=== PATIENT | female | born 1965 | race Caucasian/White ===

== ENCOUNTER 2017-10-18 08:28 | Emergency (ER) | payer OTHER, BC ==
[~2017-10-18] VITALS: Ht 165.1 cm; Wt 83.9 kg
[~2017-10-18 08:28] MED LIST: ALBU90OI INH; ALPR.5; BELPHEELB PO; BIRTH CONTROL; CETI10 PO; CIME300 PO; DULO60 PO; ESTR1 PO; ESTR2 PO; FEXO60; FEXPSEER; FURO20; LEVSOD75; MOMENI; MULVITMIND PO; OMEP20ER PO; OXYACE5T PO; POTASSIUM PO; POTCHL20ER PO; PRED20 PO; PROM25 PO; Prednisone20 MG PO; QUET100 PO; ROSU10TA; RXSULTRIDS PO; SERT100; SUCR1 PO; SULTRIDS PO
[2017-10-18 08:51] LABS: BASOPHILS ABSOLUTE AUTO 0.05 K/mm3 (0.00-0.23); BASOPHILS PERCENT AUTO 1 % (0-2); EOSINOPHILS ABSOLUTE AUTO 0.25 K/mm3 (0.00-0.68); EOSINOPHILS PERCENT AUTO 4 % (0-6); Hemoglobin 12.2 g/dL (11.5-16.0); IMMATURE GRAN ABSOLUTE AUTO 0.03 K/mm3 (0.00-0.10); IMMATURE GRAN PERCENT AUTO 0 % (0-1); LYMPHOCYTES ABSOLUTE AUTO 2.05 K/mm3 (0.84-5.20); LYMPHOCYTES PERCENT AUTO 29 % (21-46); MONOCYTES ABSOLUTE AUTO 0.42 K/mm3 (0.16-1.47); MONOCYTES PERCENT AUTO 6 % (4-13); Mean Corpuscular HGB 30.3 pg (26.0-34.0); Mean Corpuscular HGB Conc 33.9 g/dL (31.5-36.5); Mean Corpuscular Volume 90 fL (80-100); Mean Platelet Volume 10.1 fL (9.1-12.4); NEUTROPHILS ABSOLUTE AUTO 4.17 K/mm3 (1.96-9.15); NEUTROPHILS PERCENT AUTO 60 % (41-73); Platelet Count 257 K/mm3 (150-400); RDW Coefficient Variation 12.9 % (11.7-14.2); RDW Standard Deviation 42.4 fL (35.1-46.3); Red Blood Cell Count 4.02 M/mm3 (3.80-5.20); White Blood Cell Count 6.97 K/mm3 (4.00-11.30)
[2017-10-18 09:08] LABS: Alanine Aminotransfer (ALT/SGP 29 U/L (12-78); Albumin, Blood 3.4 g/dL (3.4-5.0); Alk Phos 63 U/L (50-136); Anion Gap 8 mmol/L (6-16); Aspartate Aminotrans (AST/SGOT 29 U/L (12-37); Bilirubin, Total 0.2 mg/dL (0.1-1.0); Blood Urea Nitrogen 15 mg/dL (8-24); CO2, Blood 23 mmol/L (21-32); Chloride, Blood 109 mmol/L (98-108); Ethanol (Alcohol), Blood, Med <3 mg/dL; Globulin, Blood 3.5 g/dL (2.2-4.0); Glomerular Filtration Rate >60 (60-); Glucose, Blood 96 mg/dL (70-99); International Normalized Ratio 1.01; Potassium, Blood 3.6 mmol/L (3.5-5.5); Prothrombin Time Results 10.5 Sec (9.7-11.5); Sodium, Blood 140 mmol/L (136-145); Total Protein, Blood 6.9 g/dL (6.4-8.2)
[2017-10-18] MEDS ORDERED: Norco 5-325 Ta1 EACH PO (09:44)
[2017-10-18] MEDS ORDERED: Zofran Odt4 MG SL (09:44)
[2017-10-18] MEDS ORDERED: IBUP800 PO (09:44)
== END 2017-10-18 10:59 | disposition home or self-care (01) ==
LOC: ER 08:28
PROVIDERS: Emergency Medicine
DX: S16.1XXA Strain of muscle, fascia and tendon at neck level, initial encounter (principal); S70.02XA Contusion of left hip, initial encounter; F41.9 Anxiety disorder, unspecified; Z87.891 Personal history of nicotine dependence; Z79.899 Other long term (current) drug therapy; V49.9XXA Car occupant (driver) (passenger) injured in unspecified traffic accident, initial encounter
CPT/HCPCS: 70450; 71046; 72125; 73502; 80053; 83690; 85025; 85610; 85730; 86850; 86900; 86901; 90471; 90714; 96374; 96375; 99284; G0480; J1170; J2405; J7030

== ENCOUNTER 2019-04-24 06:23 | Observation (INO) | payer BC, OTHER ==
[~2019-04-24] VITALS: Ht 167.6 cm; Wt 86.3 kg
[~2019-04-24 06:23] MED LIST changes: +IBUP800 PO; +Norco 5-325 Ta1 EACH PO; +Zofran Odt4 MG SL
[2019-04-24 07:09] LABS: BASOPHILS ABSOLUTE AUTO 0.05 K/mm3 (0.00-0.23); BASOPHILS PERCENT AUTO 1 % (0-2); EOSINOPHILS ABSOLUTE AUTO 0.46 K/mm3 (0.00-0.68); EOSINOPHILS PERCENT AUTO 7 % (0-6); Hematocrit 43.1 % (33.0-51.0); Hemoglobin 14.1 g/dL (11.5-16.0); IMMATURE GRAN ABSOLUTE AUTO 0.02 K/mm3 (0.00-0.10); IMMATURE GRAN PERCENT AUTO 0 % (0-1); LYMPHOCYTES PERCENT AUTO 30 % (21-46); MONOCYTES ABSOLUTE AUTO 0.45 K/mm3 (0.16-1.47); MONOCYTES PERCENT AUTO 7 % (4-13); Mean Corpuscular HGB 30.1 pg (26.0-34.0); Mean Corpuscular HGB Conc 32.7 g/dL (31.5-36.5); Mean Corpuscular Volume 92 fL (80-100); Mean Platelet Volume 10.2 fL (9.1-12.4); NEUTROPHILS PERCENT AUTO 55 % (41-73); Platelet Count 280 K/mm3 (150-400); RDW Coefficient Variation 13.4 % (11.7-14.2); RDW Standard Deviation 45.3 fL (35.1-46.3); Red Blood Cell Count 4.69 M/mm3 (3.80-5.20); White Blood Cell Count 6.58 K/mm3 (4.00-11.30)
[2019-04-24 07:15] LABS: Alanine Aminotransfer (ALT/SGP 33 U/L (12-78); Albumin, Blood 3.7 g/dL (3.4-5.0); Albumin/Globulin Ratio 0.8 (0.8-1.8); Alk Phos 102 U/L (50-136); Anion Gap 7 mmol/L (6-16); Aspartate Aminotrans (AST/SGOT 31 U/L (12-37); Bilirubin, Total 0.3 mg/dL (0.1-1.0); Blood Urea Nitrogen 14 mg/dL (8-24); Bun/Creatinine Ratio 15.1 (12.0-20.0); CO2, Blood 22 mmol/L (21-32); Chloride, Blood 109 mmol/L (98-108); Creatinine, Blood 0.93 mg/dL (0.40-1.00); Globulin, Blood 4.4 g/dL (2.2-4.0); Glomerular Filtration Rate >60 (60-); Glucose, Blood 125 mg/dL (70-99); Potassium, Blood 3.7 mmol/L (3.5-5.5); Sodium, Blood 138 mmol/L (136-145); Total Protein, Blood 8.1 g/dL (6.4-8.2); Troponin I <0.015 ng/mL (0.000-0.040)
--- NOTE | 2019-04-24 15:06 | NUR ---
CALL FROM [facility] STATING THAT THEY ARE UNABLE TO DO THE STRESS TEST UNTIL WEDNESDAY, THE DYE ISN'T BEING PICKED UP BY THE SCANNER, SO THEY ARE ORDERING MORE. CALLED DR PARADA TO INFORM. PT AWARE. MADE SURE DR PARADA IS AWARE THAT PT IS SWEATY, NAUSEOUS. PT ALSO STILL HAS CHEST PRESSURE. HE WILL DECIDE WHETHER TO KEEP PT INPATIENT AND CALL ME BACK
--- NOTE | 2019-04-24 16:41 | NUR ---
Eladia was tearful throughout conversation. She admits fear as family history is rampant with heart problems. She has a deep jaylon and responded well to spiritual direction and prayer. Awaiting test results to determine POC. I will continue to provide rehabilitation counsellor and prayer as case-load permits.
--- NOTE | 2019-04-24 17:19 | NUR ---
ECHOCARDIOGRAM COMPLETE
--- NOTE | 2019-04-24 17:23 | NUR ---
SHIFT SUMMARY ASHLEIGH ARRIVED FROM THE ER THIS MORNING. SHE ENDORSED CHEST PRESSURE AND SWEATS AND NAUSEA. SHE RECEIVED IV NAUSEA MEDICATION. ATTEMPTED FIRST ROUND OF STRESS TEST, BUT THEY ARE HAVING TECHNICAL ISSUES. ECHO OBTAINED.TELE SHOWING NSR. RECEIVED TYLENOL FOR HEADACHE WHICH WORKED WELL. INDEPENDENT TO BATHROOM. TOOK MEDS PRESCRIBED. CALL [facility]
[2019-04-24] MEDS ORDERED: FAMO20 PO (18:23)
--- NOTE | 2019-04-24 18:59 | NUR ---
DISCHARGE SUMMARY ASHLEIGH DISCHARGED TO F/U OUTPATIENT. PAPERWORK GIVEN, PIV REMOVED, MEDS FAXED TO PHARMACY.
== END 2019-04-24 18:37 | disposition home or self-care (01) ==
LOC: ER 06:23 → MEDS 06:24
PROVIDERS: Internal Medicine; ADMIT Internal Medicine
DX: I20.9 Angina pectoris, unspecified (principal); F43.10 Post-traumatic stress disorder, unspecified; I51.9 Heart disease, unspecified; F17.210 Nicotine dependence, cigarettes, uncomplicated; E78.5 Hyperlipidemia, unspecified; N95.9 Unspecified menopausal and perimenopausal disorder; Z88.8 Allergy status to other drugs, medicaments and biological substances; Z82.49 Family history of ischemic heart disease and other diseases of the circulatory system
CPT/HCPCS: 36415; 71046; 78451; 80053; 84484; 85025; 93005; 93010; 93306; 96375; 99285-25; A9270; A9500; G0378; J0780; J2405